=== PATIENT | female | born 1965 | race Caucasian/White ===

== ENCOUNTER 2021-10-09 13:37 | Emergency (ER) | payer OTHER ==
[2021-10-09 15:08] LABS: HEMOGLOBIN 15.6 gm/dl (12.3-15.3); RED BLOOD COUNT 5.31 M/UL (4.00-5.10); WHITE BLOOD COUNT 10.4 K/UL (4.5-11.0)
[2021-10-09 15:29] LABS: BUN/CREATININE RATIO 15 (0-10)
[2021-10-09] MEDS ORDERED: IBUPROFEN600 MG PO (16:18)
== END 2021-10-09 16:30 | disposition home or self-care (01) ==
LOC: ER1 13:37
PROVIDERS: Nurse Practitioner
DX: M54.2 Cervicalgia (principal); M54.50 Low back pain, unspecified; R07.89 Other chest pain; E11.9 Type 2 diabetes mellitus without complications; I10 Essential (primary) hypertension; F17.210 Nicotine dependence, cigarettes, uncomplicated; R10.817 Generalized abdominal tenderness; Z88.2 Allergy status to sulfonamides; V49.40XA Driver injured in collision with unspecified motor vehicles in traffic accident, initial encounter; W22.11XA Striking against or struck by driver side automobile airbag, initial encounter; Y92.410 Unspecified street and highway as the place of occurrence of the external cause
CPT/HCPCS: 70450; 71045; 71260; 72125; 80053; 82550; 82553; 83874; 84484; 85025; 85610; 85730; 93005; 96374; 96375; 99285; J2270; J2405; Q9967